=== PATIENT | male | born 1970 | race Caucasian/White ===

== ENCOUNTER → 2018-03-29 | Outpatient (CLI) | payer BC ==
--- NOTE | 2018-03-29 10:42 | CT ---
CT brain HISTORY: Sinus disease, neck swelling, [address] Helical acquisition through the brain during dynamic administration of 100 cc Isovue-300. Automated e xposure control for dose reduction. No comparisons There is no abnormal enhancement. Brain density is remarkable for some patchy periventricular low-att enuation. No hemorrhage or hydrocephalus. Calvarium is intact. Paranasal sinuses and mastoid air cell s as visualized are normal. IMPRESSION: Unremarkable contrast enhanced head CT.
--- NOTE | 2018-03-29 11:02 | CT ---
EXAMINATION TYPE: CT soft tissue neck w con DATE OF EXAM: 03/29/2018 10:25 AM COMPARISON: None HISTORY: Neck swelling CT DLP: 1135.10 mGycm Automated exposure control for dose reduction was used. CONTRAST: CT scan of the neck is performed following with IV Contrast, patient injected with 100 mL of Isovue 3 00. Axial images are obtained, coronal and sagittal reformatted images are reviewed. FINDINGS: Pharyngeal soft tissues show punctate calcifications likely due to chronic infection. Skull base is unremarkable. Airway: No gross abnormality seen. Some minimal apical emphysematous changes are present. Parotid/submandibular glands: No gross abnormality seen. Carotid/Vascular Structures: Patent Osseous Structures: Degenerative disc changes are present in the visualized spine. There is multileve l foraminal encroachment. Other: At the site of the BBs overlying the patient's area of symptomatology there is underlying mendez fact present. No discrete mass. IMPRESSION: Fat deposits are present at the site of patient's palpable abnormalities.
== END | disposition home or self-care (01) ==
LOC: RADCTMAIN 09:44
PROVIDERS: ATTEND Pediatrics
DX: R22.1 Localized swelling, mass and lump, neck (principal)
CPT/HCPCS: 70491; 70460; Q9967

== ENCOUNTER 2020-08-30 11:28 | Day surgery (SDC) | payer BC ==
[2020-08-29 10:18] VITALS: BMI 33.0
[2020-08-30] MEDS ORDERED: LIDOCAINE 1% (10MG/ML) FOR IV START INTRADERMA ONE (12:01)
[2020-08-30] MEDS ORDERED: LACTATED RINGERS 1,000 ML IV ONE (12:01)
[2020-08-30 12:04] VITALS: TEMP 98.5
[2020-08-30] MEDS ORDERED: LIDOCAINE 1% INJ 10MG/ML (20 ML MDV) ONE (12:38)
[2020-08-30] MEDS ORDERED: fentaNYL (PF) 50 MCG/ML 2 ML AMP ONE (12:38)
[2020-08-30] MEDS ORDERED: MIDAZOLAM 2 MG/2 ML VIAL ONE (12:38)
[2020-08-30] MEDS ORDERED: PROPOFOL 10 MG/ML 20 ML VIAL IV ONE (12:38)
--- NOTE | 2020-08-30 13:26 | P.PCN ---
Date of Procedure: 08/30/20 Description of Procedure: Brief history: Patient is a pleasant 50-year-old male presenting for outpatient EGD and colonoscopy for evaluation of symptoms of GI bleed, blood in stool, and GERD. No prior EGD or colonoscopy. Patient was adopted but reports his biological mother has no history of gastrointestinal pathology. He reports intermittent blood per rectum. He reports frequent symptoms of reflux, generally at night time and does report eating late at night. Procedure performed: Esophagogastroduodenoscopy with biopsy Colonoscopy with polypectomy and Endo Clip placement Estimated blood loss: Minimal. Preoperative diagnosis: GI bleed, blood in stool, GERD Anesthesia: MAC Procedure: After informed consent was obtained from the patient was brought into the endoscopy unit and IV sedation was administered by anesthesia under continuous monitoring. Initially upper endoscopy was done. The Olympus GF 190 video endoscope was inserted into the mouth and esophagus intubated without any difficulty and was gradually advanced into the stomach and duodenum and carefully examined. The bulb and second part of the duodenum appeared normal. The scope was then withdrawn into the stomach adequately insufflated with air and upon careful examination the antrum and body, cardia and fundus appeared normal. The scope was then withdrawn into the esophagus. The GE junction was located at 40 cm to the incisors. It appeared regular with no erythema erosions or ulcerations. Rest of the esophagus appeared normal. Patient tolerated the procedure well. At this time the patient continued to remain sedation. Initial digital rectal examination was normal. Olympus CF 190 video colonoscope was then inserted into the rectum and gradually advanced to the cecum without any difficulty. Careful examination was performed as the scope was gradually being withdrawn. The prep was excellent. The cecum, ascending colon, transverse colon, descending colon, sigmoid colon and rectum appeared normal. A few scattered diverticula noted in the sigmoid colon. A pedunculated 12 mm descending colon polyp located 45 cm from the anal verge was removed with hot snare polypectomy with Endo Clip placement. A pedunculated 15 mm sigmoid polyp located 35 cm from the anal verge was removed with hot snare polypectomy with Endo Clip placement for hemostasis. 3 flat rectal polyps removed with cold snare polypectomy measuring 3-5 mm in size. Retroflexion was performed in the rectum and no lesions were noted, low- grade internal hemorrhoids noted. Patient tolerated the procedure well. Impression: 1. Mild gastritis. LA grade a distal esophagitis. Biopsies of the duodenum, antrum and body and lower esophagus. 2. 2 large pedunculated polyps removed with hot snare polypectomy from the descending colon and sigmoid colon with Endo Clip placement 2 for hemostasis. 3 polyps removed from the rectum with cold snare polypectomy. Mild sigmoid diverticulosis. Internal hemorrhoids. Recommendations: Findings of this examination were discussed with the patient as well as his family. Okay to resume diet. Okay to resume medications. Await pathology from biopsies and polypectomy. Recommend repeat colonoscopy in 1 year for high-risk colon polyps. Extensive discussion with the patient regarding dietary modifications including reducing reflux inducing foods and not eating 2-3 hours prior to that.
[2020-08-30 13:29] VITALS: RESP 18
[2020-08-30 13:48] VITALS: BP 127/67; PULSE 78
== END 2020-08-30 14:04 | disposition home or self-care (01) ==
LOC: ORWHC2ENDO 11:28
PROVIDERS: ATTEND Internal Medicine
DX: K21.00 Gastro-esophageal reflux disease with esophagitis, without bleeding (principal); D12.4 Benign neoplasm of descending colon; D12.5 Benign neoplasm of sigmoid colon; K63.5 Polyp of colon; K64.8 Other hemorrhoids; K57.30 Diverticulosis of large intestine without perforation or abscess without bleeding; Z98.890 Other specified postprocedural states; E66.9 Obesity, unspecified; Z68.34 Body mass index [BMI] 34.0-34.9, adult
CPT/HCPCS: 88305; 45385; 43239; J2250; J2001; J3010; J2704; 45382

== ENCOUNTER 2022-11-28 12:53 | Day surgery (SDC) | payer BC ==
[2022-11-28 13:47] VITALS: TEMP 97.8
[2022-11-28] MEDS: LACTATED RINGERS 1,000 ML IV SCH ×2 (13:52→15:04)
[2022-11-28 14:01] LABS: Glucose,Whole Blood 90 mg/dL (70-110)
[2022-11-28] MEDS ORDERED: PROPOFOL 10 MG/ML 20 ML VIAL IV ONE (15:00)
--- NOTE | 2022-11-28 15:20 | P.PCN ---
Date of Procedure: 11/28/22 Procedure(s) Performed: BRIEF HISTORY: Patient is a 52-year-old pleasant white male scheduled for an elective colonoscopy as a part of evaluation of prior history of colon polyps. His last colonoscopy was 3 years ago and was noted to have multiple colon polyps and biopsies revealed tubular villous adenoma. PROCEDURE PERFORMED: Colonoscopy with snare polypectomy. PREOPERATIVE DIAGNOSIS: History of colon polyps. IV sedation per Anesthesia. PROCEDURE: After informed consent was obtained, the patient, was brought into the endoscopy unit. IV sedation was administered by Anesthesia under continuous monitoring. Digital rectal examination was normal. Initially the Olympus CF-160 flexible video colonoscope was then inserted in the rectum, gradually advanced into the cecum without any difficulty. Careful examination was performed as the scope was gradually being withdrawn. Ileocecal valve and the appendiceal orifice were visualized and appeared normal. Prep was excellent. Mucosa of the cecum, ascending colon, transverse colon, descending colon, sigmoid colon, and rectum appeared normal. In the distal rectum there was a 5 mm polyp removed by cold snare polypectomy Retroflexion was performed in the rectum and no lesions were seen. The patient tolerated the procedure well. IMPRESSION: 5 mm distal rectal polyp status post polypectomy Rest of the colon appeared normal RECOMMENDATIONS: Findings of this examination were discussed with the patient as well as his family. He was advised to follow with the biopsy results and have a repeat colonoscopy in 5 years because of history of multiple colon polyps.
[2022-11-28 16:08] VITALS: BP 119/78; PULSE 70; RESP 20
== END 2022-11-28 16:11 | disposition home or self-care (01) ==
LOC: ORWHC2ENDO 12:53
PROVIDERS: ATTEND Internal Medicine Gastroenterology
DX: Z12.11 Encounter for screening for malignant neoplasm of colon (principal); K63.5 Polyp of colon; K62.1 Rectal polyp; Z87.891 Personal history of nicotine dependence; Z86.010 Personal history of colon polyps
CPT/HCPCS: 88305; 45385; J2704